=== PATIENT | female | born 1965 | race Caucasian/White ===

== ENCOUNTER 2018-11-30 13:15 | Observation (INO) | payer SELFPAY ==
[~2018-11-30] VITALS: Ht 149.9 cm; Wt 56.7 kg
--- NOTE | 2018-11-30 13:15 | NUR ---
GILDARDO ROSS admitted to room 410-1, with an admitting diagnosis of ACCELERATED HTN, on 11/30/18 from via DIRECT ADMIT FROM [facility], accompanied by EMS. GILDARDO ROSS introduced to surroundings, call light, bed controls, phone, TV, temperature control, lights, meal times, smoking policy, visitor policy, side rail policy, bathrooms and showers. Patient Rights given to patient in the handbook. GILDARDO ROSS verbalizes understanding that [facility] is not responsible for the loss or damage to any personal effects or valuables that are kept in the patients possession during their hospitalization. GILDARDO ROSS verbalizes understanding of Interdisciplinary Patient Education. Patient WAS informed about the Rapid Response Team and its purpose. Addendum: 11/30/18 at 1851 by GAVINO LANDA RN PT ARRIVED TO FLOOR AT 1515 ON 11/28/18.
[2018-11-30 15:15] VITALS: BP 170/88
[2018-11-30] MEDS ORDERED: HYDROCHLOROTHIAZIDE 25 MG (HCTZ) TAB PO ONE (15:15)
[2018-11-30] MEDS ORDERED: ACETAMINOPHEN 500 MG TAB (TYLENOL) PO PRN (15:15)
--- OUTSIDE RECORDS SUMMARY | 2018-11-30 15:17 | XMS REPORT ---
Author Author [facility] Address [address] [place] [address] Care Team Providers Care Water Resource Manager Name Role Phone ALEKSANDRA MARTI Unavailable PROBLEMS Type Condition ICD9-CM Code SWS21-CZ Code Onset Dates Condition Status SNOMED Code Problem COPD with exacerbation J44.1 Active 580285216 ALLERGIES Substance Reaction Event Type Date Status N.K.D.A. Unknown Non Drug Allergy Dec, Unknown SOCIAL HISTORY No smoking Hx information available PLAN OF CARE Activity Details Follow Up prn Reason: VITAL SIGNS Height 59 in 2016-12-18 Weight 127.3 lbs 2016-12-18 Temperature 97.9 degrees Fahrenheit 2016-12-18 Heart Rate 70 bpm 2016-12-18 Respiratory Rate 20 2016-12-18 Oximetry 97 % 2016-12-18 BMI 25.71 kg/m2 2016-12-18 Blood pressure systolic 168 mmHg 2016-12-18 Blood pressure diastolic 92 mmHg 2016-12-18 MEDICATIONS Medication Instructions Dosage Frequency Start Date End Date Duration Status Meloxicam 15 MG Orally Once a day 1 tablet 24h Active PredniSONE 20 mg Orally Once a day 2 tabelts 24h Dec, Dec, 05 days Active Levaquin 250 MG Orally Once a day 2 tablets 24h Dec, Dec, 05 days Active Alprazolam 0.25 MG Orally Three times a day PRN 1 tablet Active Lisinopril-Hydrochlorothiazide 10-12.5 MG Orally Once a day 1 tablet 24h Active RESULTS Name Result Date Reference Range Xray : Chest (IN HOUSE) 2016-12-18 PROCEDURES Procedure Date Ordered Related Diagnosis Body Site MEASURE BLOOD OXYGEN LEVEL Dec 18, 2016 CHEST X-RAY Dec 18, 2016 Office Visit, New Pt., Level 2 Dec 18, 2016 IMMUNIZATIONS No Known Immunizations
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
--- OUTSIDE RECORDS SUMMARY | 2018-11-30 15:17 | XMS REPORT ---
Author Author BOB LEWIS [facility] Address [address] [place] [address] Care Team Providers Care Medical Transcription Editor Name Role Phone BOB LEWIS Unavailable PROBLEMS Type Condition ICD9-CM Code [id number] Code Onset Dates Condition Status SNOMED Code Problem Osteoarthritis M19.90 Active 773898733 Problem Essential hypertension I10 Active 86612186 Problem Incomplete tear of right rotator cuff M75.111 Active 3338787 Problem COPD with exacerbation J44.1 Active 537636464 ALLERGIES No Known Allergies ENCOUNTERS Encounter Location Date Diagnosis [facility] [address] [place] [phone] Oct, De Quervain's tenosynovitis, bilateral M65.4 and Osteoarthritis M19.90 [facility] [address] [place] [address] Jul, Essential hypertension I10 and Incomplete tear of right rotator cuff M75.111 [email or web address] [address] [place] [address] Dec, Cough R05 and COPD with exacerbation J44.1 [address], [place] [address] Sep, [facility] [address] [place] [address] Aug, IMMUNIZATIONS No Known Immunizations SOCIAL HISTORY Never Assessed REASON FOR VISIT works as a quality control auditor. reports both hands are swollen et painful. [email or web address] PLAN OF CARE Activity Details Follow Up if not improving with PCP or reg follow up Reason: VITAL SIGNS Height 59 in 2018-10-26 Weight 123.4 lbs 2018-10-26 Temperature 98.6 degrees Fahrenheit 2018-10-26 Heart Rate 80 bpm 2018-10-26 Respiratory Rate 20 2018-10-26 BMI 24.92 kg/m2 2018-10-26 Blood pressure systolic 144 mmHg 2018-10-26 Blood pressure diastolic 86 mmHg 2018-10-26 MEDICATIONS Medication Instructions Dosage Frequency Start Date End Date Duration Status ibuprofen Oral 2-3 times per day 4 tab Active Meloxicam 15 MG Orally Once a day 1 tablet 24h Not-Taking Alprazolam 0.25 MG Orally Three times a day PRN 1 tablet Active Meloxicam 15 MG Orally Once a day 1 tablet 24h Oct, 30 day(s) Active Lisinopril-Hydrochlorothiazide 10-12.5 MG Orally Once a day 1 tablet 24h Active RESULTS No Results PROCEDURES No Known procedures INSTRUCTIONS MEDICATIONS ADMINISTERED No Known Medications MEDICAL (GENERAL) HISTORY Type Description Date Medical History HTN Medical History Arthritis Medical History Anxiety Surgical History Hospitalization History childbirth
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
[2018-11-30] MEDS ORDERED: ALPR0.254 PO (15:48)
[2018-11-30] MEDS ORDERED: NEBI5TAB8 PO (15:48)
[2018-11-30] MEDS ORDERED: PRD10T (15:48)
[2018-11-30] MEDS: hydrALAZINE (APESOLINE) 20 MG/ML VIAL IV SCH ×2 (15:55→20:10)
[2018-11-30] MEDS ORDERED: PATIENT MAY USE OWN MED,SINGLE MED PO SCH (16:00)
--- NOTE | 2018-11-30 16:00 | NUR ---
DR RAM NOTIFIED BY THIS RN OF PATIENTS HOME MEDICATION ON FILE. NEW ORDERS RECEIVED AT THIS TIME.
[2018-11-30] MEDS ORDERED: NICO-533 TD (17:51)
[2018-11-30] MEDS ORDERED: IBUP-16 PO (17:51)
[2018-11-30] MEDS ORDERED: MELO15TA14 PO (17:51)
[2018-11-30] MEDS: ALPRAZolam 0.25 MG (XANAX) TAB PO PRN (20:10)
[2018-11-30] MEDS: meTOprolol TARTRATE 50 MG (LOPRESSOR) TAB PO SCH (20:10)
[2018-11-30 20:40] VITALS: BP_SYST 154; BP_SYST 180; BP_DIAS 104; BP_DIAS 90
[2018-12-01] VITALS: BP 151/88
[2018-12-01 04:00] VITALS: BP 160/88
[2018-12-01 05:52] LABS: BASOPHILS % (AUTO) 0 % (0-10); EOSINOPHILS # (AUTO) 0.2 10^3/uL (0.0-0.3); EOSINOPHILS % (AUTO) 2 % (0-10); HEMATOCRIT 44 % (35-52); HEMOGLOBIN 14.7 G/DL (11.5-16.0); LYMPHOCYTES # (AUTO) 2.6 X 10^3 (1.0-4.0); LYMPHOCYTES % (AUTO) 28 % (12-44); MEAN CORPUSCULAR HEMOGLOBIN 32 PG (25-34); MEAN CORPUSCULAR HGB CONC 34 G/DL (32-36); MEAN CORPUSCULAR VOLUME 95 FL (80-99); MONOCYTES % (AUTO) 11 % (0-12); NEUTROPHILS # (AUTO) 5.5 X 10^3 (1.8-7.8); NEUTROPHILS % (AUTO) 59 % (42-75); PLATELET COUNT 268 10^3/uL (130-400); RED BLOOD COUNT 4.59 10^6/uL (4.35-5.85); RED CELL DISTRIBUTION WIDTH 13.7 % (10.0-14.5); WHITE BLOOD COUNT 9.2 10^3/uL (4.3-11.0)
[2018-12-01 06:11] LABS: ALANINE AMINOTRANSFERASE 79 U/L (0-55); ALKALINE PHOSPHATASE 95 U/L (40-136); BILIRUBIN,TOTAL 0.5 MG/DL (0.1-1.0); BUN/CREATININE RATIO 19; CALCIUM 9.7 MG/DL (8.5-10.1); CARBON DIOXIDE 26 MMOL/L (21-32); CHLORIDE 98 MMOL/L (98-107); CREATININE SERUM 0.75 MG/DL (0.60-1.30); GFR ESTIMATED > 60; GLUCOSE 89 MG/DL (70-105); POTASSIUM 4.4 MMOL/L (3.6-5.0); SODIUM 135 MMOL/L (135-145); TOTAL PROTEIN 7.1 GM/DL (6.4-8.2)
[2018-12-01] MEDS: hydrALAZINE (APESOLINE) 20 MG/ML VIAL IV SCH ×4 (06:22→09:55)
[2018-12-01] MEDS ORDERED: FLU QUADRIvalent (5+ YOA) 2018-2019 (AFLURIA) 0.5 ML IM ONE (07:15)
[2018-12-01] MEDS: meTOprolol TARTRATE 50 MG (LOPRESSOR) TAB PO SCH (08:27)
[2018-12-01] MEDS ORDERED: LISI1TAB10 PO (08:33)
[2018-12-01] MEDS ORDERED: METO50TA15 PO (08:33)
--- NOTE | 2018-12-01 08:39 | Discharge Inst-Simple/Standard ---
Discharge Inst-Standard Discharge Medications New, Converted or Re-Newed RX: Transmitted to Pharmacy Patient Instructions/Follow Up Plan of Care/Instructions/FU: Please continue to take your medications as written and please follow up with Dr Madison next week. Activity as Tolerated: Yes Discharge Diet: Cardiac Diet Return to The Hospital For: Chest pain, Short of breath, severe headache, if you feel worse. YANE CUBA MD Dec 01, 2018 08:39
--- NOTE | 2018-12-01 08:45 | Short Stay Summary-Hospitalist ---
History of Present Illness HPI/Chief Complaint Pt is a 53yoCF with a PMH of HTn who presented to outside hospital who elevated blood pressure. She states she has a long history of high blood pressure and was on Lisinopril and HCTZ and went to see Dr Madison in [place] and was started on Bystolic. She discontinued her Lisinopril/HCTZ at that time and was taking only the Bystolic. She took her BP and saw that it was 180/100 and called her PCP's office who advised her to take a higher dose of her bystolic. She then went to [facility] with her son and when they got done he checked her BP again and her systolic was on 200. She called her PCP's office and they advised her to seek care in the ER. On arrival to the ER she was found to have persistently high BP over 200 and was started on a cardene drip and transferred here. The Cardene was discontinued prior to arrival and her home medications where restarted. BP' s have remained in the 150-160s overnight and she states she is feeling well today. Source: patient Date Seen 12/01/18 Time Seen by a Provider: 09:30 Attending Physician Fernando Norton MD PCP Self,Terrence VIZCAINO Referring Physician Date of Admission Nov 30, 2018 at 15:13 Home Medications & Allergies Home Medications Reviewed patient Home Medication Reconciliation performed by pharmacy medication reconciliations communications field technician and/or nursing. Patients Allergies have been reviewed. Allergies Allergies Coded Allergies No Known Drug Allergies (Qexgqsfprw44/30/18) Past Buatrts-Njurae-Enpsrk Hx Past Med/Social Hx: Reviewed Nursing Past Med/Soc Hx Patient Social History Alcohol Use: Denies Use Recreational Drug Use: No Smoking Status: Former Smoker Former Smoker, Quit: Nov 17, 2018 Type Used: Cigarettes Physical Abuse Screen: No Sexual Abuse: No Recent Foreign Travel: No Contact w/other who traveled: No Recent Hopitalizations: No Recent Infectious Disease Expo: No Seasonal Allergies Seasonal Allergies: No Past Medical History Surgeries: Section Cardiac: Hypertension Musculoskeletal: Arthritis Psychosocial: Anxiety History of Blood Disorders: No Family History Reviewed Nursing Family Hx Colon cancer 19 MOTHER Completed stroke 19 FATHER, FH: heart disease 19 MOTHER Hypertension 19 FATHER, 19 MOTHER G8 BROTHER G8 SISTER Review of Systems Constitutional: No chills, No fever EENTM: nose congestion; No blurred vision, No double vision, No throat pain Respiratory: No cough, No dyspnea on exertion, No short of breath Cardiovascular: No chest pain, No edema, No palpitations Gastrointestinal: No abdominal pain, No constipation, No diarrhea, No nausea, No vomiting Genitourinary: No dysuria, No frequency Musculoskeletal: No joint pain, No muscle pain Skin: No lesions, No rash Psychiatric/Neurological: Headache Physical Exam Physical Exam Vital Signs Vital Signs - First Documented 11/30/18 15:15 Temp 98.6 Pulse 69 Resp 20 B/P (MAP) 170/88 (115) Pulse Ox 94 O2 Delivery Room Air Capillary Refill : Height, Weight, BMI Height: 4'11.00" Weight: 125lbs. 0.0oz. 56.311526og; 25.3 BMI Method: General Appearance: No Apparent Distress, WD/WN HEENT: PERRL/EOMI, Moist Mucous Membranes Neck: Non Tender, Supple Respiratory: Lungs Clear, No Respiratory Distress Cardiovascular: Regular Rate, Rhythm, No Murmur Gastrointestinal: Normal Bowel Sounds, Non Tender, Soft Extremity: Normal Capillary Refill, No Calf Tenderness Neurologic/Psychiatric: Alert, Oriented x3, Normal Mood/Affect Skin: Normal Color, Warm/Dry Results Results/Procedures Labs Patient resulted labs reviewed. Short Stay Diagnosis Discharge Diagnosis-Short Stay Admission Diagnosis Hypertensive Urgency Final Discharge Diagnosis Hypertensive Urgency Conclusion Plan Hypertensive Urgency BP improved with resumption of oral meds Will continue Lisinopril/HCTZ at home and transition to metoprolol tartate at home due to cost as patient has difficulty affording meds DC Home Clinical Quality Measures DVT/VTE Risk/Contraindication: Risk Factor Score Per Nursin RFS Level Per Nursing on Admit: 1=Low/No VTE PPX YANE CUBA MD Dec 01, 2018 08:45
[2018-12-01 08:48] VITALS: BP 177/97
[2018-12-01] MEDS ORDERED: lisINopril 20 MG (PRINIVIL) TABLET PO SCH (09:00)
[2018-12-01 09:20] VITALS: BP 211/107
[2018-12-01 09:30] VITALS: BP_SYST 172; BP_SYST 180; BP_DIAS 110; BP_DIAS 92
[2018-12-01] MEDS: ALPRAZolam 0.25 MG (XANAX) TAB PO PRN (10:08)
== END 2018-12-01 08:40 | disposition home or self-care (01) ==
LOC: 4TH 13:15 → UNDOADMOB 15:13 → 4TH 15:32 → UNDODISOB 12-01 11:44
PROVIDERS: ADMIT Internal Medicine; ATTEND Internal Medicine
DX: I16.0 Hypertensive urgency (principal); F41.9 Anxiety disorder, unspecified; M19.91 Primary osteoarthritis, unspecified site; Z87.891 Personal history of nicotine dependence; Z79.899 Other long term (current) drug therapy
CPT/HCPCS: 36415; 80053; 85025; 99211; G0378

== ENCOUNTER 2019-09-26 09:42 | Observation (INO) | payer SELFPAY ==
[~2019-09-26] VITALS: Ht 149.9 cm; Wt 78.5 kg
[~2019-09-26 09:42] MED LIST: ALPR0.254 PO; IBUP-16 PO; LISI1TAB10 PO; MELO15TA14 PO; METO50TA15 PO; NEBI5TAB8 PO; NICO-533 TD; PRD10T
--- NOTE | 2019-09-26 10:09 | ED General ---
General Chief Complaint: Trauma-Non Activation Stated Complaint: FALL - HIT BACK OF HEAD Source of Information: Patient, Family Exam Limitations: No Limitations History of Present Illness Date Seen by Provider: Sep 26, 2019 Time Seen by Provider: 10:00 Initial Comments Patient stayed up late last night drinking alcohol. Has been depressed and actually got sick from the alcohol and vomited about 330 this morning. While walking into her house after that, she slipped and fell backwards hitting her head on the floor without any loss of consciousness, but did cut the back of her head. Denies any significant headache, nausea or vomiting, dizziness or confusion. Allergies and Home Medications Allergies Coded Allergies: No Known Drug Allergies (Unverified , 11/30/18) Home Medications Lisinopril/Hydrochlorothiazide 1 Each Tablet, 1 EACH PO DAILY Prescribed by: YANE CUBA on 12/01/18 0833 Metoprolol Tartrate 50 Mg Tablet, 50 MG PO BID Prescribed by: YANE CUBA on 12/01/18 0833 Nicotine 1 Each Patch.dysq, 14 MG TD DAILY, (Reported) Patient Home Medication List Home Medication List Reviewed: Yes Review of Systems Review of Systems Constitutional: dizziness; No fever, No malaise, No weakness EENTM: see HPI; No hearing loss, No ear pain, No blurred vision, No double vision, No vision loss, No hoarseness Respiratory: No cough, No dyspnea on exertion, No short of breath Cardiovascular: No chest pain, No edema, No palpitations Gastrointestinal: No abdominal pain, No nausea, No vomiting Musculoskeletal: No back pain, No joint pain, No neck pain; other (laceration back of head) Skin: see HPI; No lumps; other (laceration scalp) Psychiatric/Neurological: Depressed, Emotional Problems Past Hrfhfbw-Rzgujb-Exzgpc Hx Past Med/Social Hx: Reviewed Nursing Past Med/Soc Hx Patient Social History Type Used: Cigarettes Former Smoker, Quit: Nov 17, 2018 Recent Hopitalizations: No Seasonal Allergies Seasonal Allergies: No Past Medical History Section Respiratory: No Cardiac: Yes Hypertension Neurological: No Genitourinary: No Gastrointestinal: No Musculoskeletal: Yes Arthritis Endocrine: No HEENT: No Cancer: No Psychosocial: Yes Anxiety Integumentary: No Blood Disorders: No Family Medical History Colon cancer 19 MOTHER Completed stroke 19 FATHER, FH: heart disease 19 MOTHER Hypertension 19 FATHER, 19 MOTHER G8 BROTHER G8 SISTER Physical Exam Vital Signs Vital Signs - First Documented 09/26/19 09:50 Temp 36.6 Pulse 71 Resp 18 B/P (MAP) 178/99 (125) Pulse Ox 96 O2 Delivery Room Air Capillary Refill : Height, Weight, BMI Height: 4'11.00" Weight: 125lbs. 0.0oz. 56.247732xf; 25.3 BMI Method: General Appearance: No Apparent Distress, WD/WN; No Anxious, No Mild Distress Eyes: Bilateral Eye Normal Inspection, Bilateral Eye PERRL, Bilateral Eye EOMI HEENT: PERRL/EOMI, TMs Normal, Normal ENT Inspection, Pharynx Normal, Other (2 cm horizontal laceration midline occiput with positive hemostasis. No bony crepitance or significant swelling) Neck: Full Range of Motion, Normal Inspection, Non Tender Respiratory: Chest Non Tender, Lungs Clear Cardiovascular: Regular Rate, Rhythm, No Edema, No Gallop, No JVD Gastrointestinal: Non Tender, Soft Back: Normal Inspection, No CVA Tenderness, No Vertebral Tenderness Extremity: Normal Capillary Refill, Normal Inspection, Normal Range of Motion Neurologic/Psychiatric: Alert, Oriented x3, No Motor/Sensory Deficits, Normal Mood/Affect, director college II-XII Norm as Tested Skin: Normal Color, Warm/Dry Procedures/Interventions Wound Location: Scalp Wound Length (cm): 2.0 Wound's Depth, Shape: linear Wound Explored: clean Anesthesia: 1% Lidocaine Volume Anesthetic (ccs): 3 Staple Repair: Stapler Skin Precise Number of Sutures: 3 Sterile Dressing Applied?: Yes Progress/Results/Core Measures Suspected Sepsis Recent Fever Within 48 Hours: No SIRS Temperature: Pulse: Respiratory Rate: Laboratory Tests 09/26/19 10:20: White Blood Count 10.9 Blood Pressure / Mean: Laboratory Tests 09/26/19 10:20: Creatinine 0.46L, Platelet Count 252, Total Bilirubin 0.4 Results/Orders Lab Results Laboratory Tests Test 09/26/19 10:20 Range/Units White Blood Count 10.9 4.3-11.0 10^3/uL Red Blood Count 4.41 4.35-5.85 10^6/uL Hemoglobin 13.6 11.5-16.0 G/DL Hematocrit 39 35-52 % Mean Corpuscular Volume 89 80-99 FL Mean Corpuscular Hemoglobin 31 25-34 PG Mean Corpuscular Hemoglobin Concent 35 32-36 G/DL Red Cell Distribution Width 13.2 10.0-14.5 % Platelet Count 252 130-400 10^3/uL Mean Platelet Volume 8.6 7.4-10.4 FL Neutrophils (%) (Auto) 81 H 42-75 % Lymphocytes (%) (Auto) 11 L 12-44 % Monocytes (%) (Auto) 7 0-12 % Eosinophils (%) (Auto) 1 0-10 % Basophils (%) (Auto) 0 0-10 % Neutrophils # (Auto) 8.8 H 1.8-7.8 X 10^3 Lymphocytes # (Auto) 1.2 1.0-4.0 X 10^3 Monocytes # (Auto) 0.7 0.0-1.0 X 10^3 Eosinophils # (Auto) 0.1 0.0-0.3 10^3/uL Basophils # (Auto) 0.0 0.0-0.1 10^3/uL Sodium Level 120 *L 135-145 MMOL/L Potassium Level 4.2 3.6-5.0 MMOL/L Chloride Level 79 L 98-107 MMOL/L Carbon Dioxide Level 27 21-32 MMOL/L Anion Gap 14 5-14 MMOL/L Blood Urea Nitrogen 6 L 7-18 MG/DL Creatinine 0.46 L 0.60-1.30 MG/DL Estimat Glomerular Filtration Rate > 60 BUN/Creatinine Ratio 13 Glucose Level 118 H 70-105 MG/DL Calcium Level 10.1 8.5-10.1 MG/DL Corrected Calcium 10.0 8.5-10.1 MG/DL Total Bilirubin 0.4 0.1-1.0 MG/DL Aspartate Amino Transf (AST/SGOT) 25 5-34 U/L Alanine Aminotransferase (ALT/SGPT) 22 0-55 U/L Alkaline Phosphatase 97 40-136 U/L Total Protein 7.3 6.4-8.2 GM/DL Albumin 4.1 3.2-4.5 GM/DL Serum Alcohol 151 H <10 MG/DL My Orders Orders - ROVENSTINE,PATRICIA L DO Lidocaine Pf 1% 5 Ml Injection (Xylocain (09/26/19 10:15) Ct Head Wo (09/26/19 10:01) Ns Iv 1000 Ml (Sodium Chloride 0.9%) (09/26/19 10:30) Ondansetron Injection (Zofran Injectio (09/26/19 10:30) Alcohol (09/26/19 10:22) Cbc With Automated Diff (09/26/19 10:22) Comprehensive Metabolic Panel (09/26/19 10:22) Ed Iv/Invasive Line Start (09/26/19 10:22) Chest Pa/Lat (2 View) (09/26/19 10:58) Ns Iv 1000 Ml (Sodium Chloride 0.9%) (09/26/19 12:00) Medications Given in ED Current Medications Medications Dose Ordered Sig/Melany Route Start Time Stop Time Status Last Admin Dose Admin Lidocaine HCl 5 ml ONCE ONCE INJ 09/26/19 10:15 09/26/19 10:16 DC 09/26/19 10:30 5 ML Ondansetron HCl 4 mg ONCE ONCE IVP 09/26/19 10:30 09/26/19 10:31 DC 09/26/19 10:32 4 MG Vital Signs/I&O 09/26/19 09:50 Temp 36.6 Pulse 71 Resp 18 B/P (MAP) 178/99 (125) Pulse Ox 96 O2 Delivery Room Air Capillary Refill : Progress Note : Time: 11:00 Progress Note Patient with 2 episodes of vomiting where she seems to have a vasovagal, witnessed near syncopal episode. On the second one of these she thinks she may have aspirated some of her vomit and began to have a cough and some chest congestion afterwards. Noted by a nurse that her oxygen saturation was now 88 percent on room air. Patient with no known history of respiratory problems, hypoxia or sleep apnea. Oxygen applied and two-view chest ordered at this time. ECG Initial ECG Impression Date: Sep 26, 2019 Initial ECG Impression Time: 09:33 Initial ECG Rate: 105 Initial ECG Rhythm: S.Tach Initial ECG Intervals: Normal Initial ECG Comparisson: No Previous ECG Available Departure Communication (Admissions) Time/Spoke to Admitting Phy: 11:[address] Bowen @ [phone], accepts for admission to [facility]. Will cont NS @ 250/h and recheck BMP in am tomorrow. Impression Primary Impression: Hyponatremia Additional Impressions: Occipital scalp laceration Qualified Codes: S01.01XA - Laceration without foreign body of scalp, initial encounter Closed head injury Qualified Codes: S09.90XA - Unspecified injury of head, initial encounter Alcohol intoxication Qualified Codes: F10.920 - Alcohol use, unspecified with intoxication, uncomplicated Hypoxia Disposition: 09 ADMITTED INPATIENT Condition: Improved Admissions Decision to Admit Reason: Admit from ER (General) Decision to Admit/Date: Sep 26, 2019 Time/Decision to Admit Time: 11:30 Departure-Patient Inst. Referrals: SELF,JULIO VIZCAINO (PCP/Family) Primary Care Physician Patient Instructions: Alcohol Use - When Is Drinking a Problem?, Closed Head Injury (DC), Laceration Repair With Evangelista (DC) PATRICIA METZGER DO Sep 26, 2019 10:09
[2019-09-26] MEDS ORDERED: LIDOCAINE PF 1% 5 ML (XYLOCAINE) AMP INJ ONE (10:15)
--- NOTE | 2019-09-26 10:29 | Diagnostic Imaging Report ---
PROCEDURE: CT head without contrast. TECHNIQUE: Multiple contiguous axial images were obtained through the brain without the use of intravenous contrast. Auto Exposure Controls were utilized during the CT exam to meet ALARA standards for radiation dose reduction. INDICATION: Fell and hit back of head. Dizziness. Nausea The ventricles are normal in size, shape and position. There is no acute parenchymal hemorrhage, edema or mass. There is no extra-axial mass or hemorrhage. There is scalp edema posteriorly on the left. No skull fracture is seen. IMPRESSION: Scalp edema. No intracranial abnormality is seen. Dictated by: Dictated on workstation # [id number]
[2019-09-26] MEDS ORDERED: NS IV 1000 ML 1,000 ML IV SCH (10:30)
[2019-09-26] MEDS ORDERED: ONDANSETRON 4 MG/2 ML (SDV) Z0FRAN IVP ONE (10:30)
--- NOTE | 2019-09-26 10:30 | NUR ---
Patient has had x2 episodes of emesis with vasovagal response. After second episode her oxygen saturation dropped to 88%. Supplemental oxygen at 2L was applied and increased to 4L to achieve an oxygen saturation of 94%. Chest X-ray was also ordered at this time.
[2019-09-26 10:32] LABS: WHITE BLOOD COUNT 10.9 10^3/uL (4.3-11.0)
[2019-09-26 10:33] LABS: BASOPHILS % (AUTO) 0 % (0-10); EOSINOPHILS # (AUTO) 0.1 10^3/uL (0.0-0.3); EOSINOPHILS % (AUTO) 1 % (0-10); HEMATOCRIT 39 % (35-52); HEMOGLOBIN 13.6 G/DL (11.5-16.0); LYMPHOCYTES # (AUTO) 1.2 X 10^3 (1.0-4.0); LYMPHOCYTES % (AUTO) 11 % (12-44); MEAN CORPUSCULAR HEMOGLOBIN 31 PG (25-34); MEAN CORPUSCULAR HGB CONC 35 G/DL (32-36); MEAN CORPUSCULAR VOLUME 89 FL (80-99); MEAN PLATELET VOLUME 8.6 FL (7.4-10.4); MONOCYTES # (AUTO) 0.7 X 10^3 (0.0-1.0); MONOCYTES % (AUTO) 7 % (0-12); NEUTROPHILS # (AUTO) 8.8 X 10^3 (1.8-7.8); NEUTROPHILS % (AUTO) 81 % (42-75); PLATELET COUNT 252 10^3/uL (130-400); RED CELL DISTRIBUTION WIDTH 13.2 % (10.0-14.5)
[2019-09-26 11:11] LABS: BUN/CREATININE RATIO 13; CALCIUM 10.1 MG/DL (8.5-10.1); CARBON DIOXIDE 27 MMOL/L (21-32); CHLORIDE 79 MMOL/L (98-107); CREATININE SERUM 0.46 MG/DL (0.60-1.30); GFR ESTIMATED > 60; GLUCOSE 118 MG/DL (70-105); POTASSIUM 4.2 MMOL/L (3.6-5.0)
[2019-09-26 11:12] LABS: ALANINE AMINOTRANSFERASE 22 U/L (0-55); ALBUMIN 4.1 GM/DL (3.2-4.5); ALKALINE PHOSPHATASE 97 U/L (40-136); BILIRUBIN,TOTAL 0.4 MG/DL (0.1-1.0); TOTAL PROTEIN 7.3 GM/DL (6.4-8.2)
[2019-09-26 11:13] LABS: SODIUM 120 MMOL/L (135-145)
--- NOTE | 2019-09-26 11:20 | Diagnostic Imaging Report ---
INDICATION: Cough. Smoking history. FINDINGS: PA and lateral chest shows the heart size and vascularity to be normal. There is obstructive airway disease with no mass or infiltrate seen. There is no pleural effusion. IMPRESSION: COPD. No acute abnormality is seen. Dictated by: Dictated on workstation # [id number]
[2019-09-26] MEDS: NS IV 1000 ML 1,000 ML IV SCH ×4 (11:59→22:08)
[2019-09-26 13:38] VITALS: BP 153/96
--- NOTE | 2019-09-26 15:42 | NUR ---
GILDARDO ROSS admitted to room 426-1, with an admitting diagnosis of HYPONATREMIA,CLOSED HEAD INJURY, on 09/26/19 from [facility] via [facility], accompanied by PERSONNEL.GILDARDO ROSS introduced to surroundings, call light, bed controls, phone, TV, temperature control, lights, meal times, smoking policy, visitor policy, side rail policy, bathrooms and showers.GILDARDO ROSS verbalizes understanding that [facility] is not responsible for the loss or damage to any personal effects or valuables that are kept in the patients posession during their hospitalization. The following Patient Care Plans were discussed with the PATIENT: Discharge Planning, PAIN,FALL PRECAUTION, and ELECTROLYTE REPLACEMENT. GILDARDO ROSS verbalizes understanding of Interdisciplinary Patient Education.
[2019-09-26] MEDS ORDERED: MELO15TA14 PO (15:43)
[2019-09-26] MEDS ORDERED: hctz (15:46)
[2019-09-26] MEDS ORDERED: losartan (15:46)
[2019-09-26] MEDS ORDERED: HUMARA (15:46)
[2019-09-26] MEDS ORDERED: coreg (15:46)
[2019-09-26] MEDS ORDERED: ONDANSETRON 4 MG/2 ML (SDV) Z0FRAN IVP PRN (16:00)
[2019-09-26] MEDS ORDERED: CATHETER FLUSH 10 ML SYR IV PRN (16:45)
[2019-09-26 16:58] VITALS: BP 198/108
[2019-09-26] MEDS ORDERED: coreg PO (17:24)
[2019-09-26] MEDS ORDERED: HUMARA IM (17:24)
[2019-09-26] MEDS ORDERED: hctz PO (17:24)
[2019-09-26] MEDS ORDERED: losartan PO (17:24)
[2019-09-26] MEDS ORDERED: CARVEDILOL 12.5 MG (COREG) TABLET ONE (17:34)
[2019-09-26] MEDS: ALPRAZolam 0.25 MG (XANAX) TAB PO SCH (17:45)
[2019-09-26] MEDS: CARVEDILOL 12.5 MG (COREG) TABLET PO SCH (17:46)
--- NOTE | 2019-09-26 17:47 | NUR ---
per dr rosario give xanex and coreg early for blood pressure of 202/104.
--- NOTE | 2019-09-26 19:43 | NUR ---
PT RATES PAIN AT A 7, SHE REPORTS SHE TAKES LORTAB 5/325 PRN AT HOME. DAUGHTER IN ROOM AND HAD MEDICATION BOTTLE AND THE INSTRUCTIONS READ PRN BID. DR YU NOTIFIED AND HE SAID IT WAS OK TO RESTART THIS MED.
[2019-09-26] MEDS ORDERED: HYDROcodone/APAP 5 MG/325 MG (LORTAB) TAB PO PRN (19:45)
[2019-09-26] MEDS ORDERED: HYDROcodone/APAP 5 MG/325 MG (LORTAB) TAB ONE (19:46)
[2019-09-26 20:05] VITALS: BP 161/93
[2019-09-27] VITALS: BP 163/95
[2019-09-27] MEDS: HYDROcodone/APAP 5 MG/325 MG (LORTAB) TAB PO PRN ×2 (02:18→06:05)
[2019-09-27] MEDS: NS IV 1000 ML 1,000 ML IV SCH ×3 (02:20→07:59)
[2019-09-27 04:00] VITALS: BP 150/98
[2019-09-27 05:41] LABS: ALANINE AMINOTRANSFERASE 17 U/L (0-55); ALBUMIN 3.5 GM/DL (3.2-4.5); ALKALINE PHOSPHATASE 82 U/L (40-136); BILIRUBIN,TOTAL 0.8 MG/DL (0.1-1.0); BUN/CREATININE RATIO 7; CALCIUM 8.3 MG/DL (8.5-10.1); CARBON DIOXIDE 24 MMOL/L (21-32); CHLORIDE 95 MMOL/L (98-107); CREATININE SERUM 0.59 MG/DL (0.60-1.30); GFR ESTIMATED > 60; GLUCOSE 88 MG/DL (70-105); POTASSIUM 3.4 MMOL/L (3.6-5.0); SODIUM 130 MMOL/L (135-145)
[2019-09-27] MEDS: CARVEDILOL 12.5 MG (COREG) TABLET PO SCH (07:58)
[2019-09-27] MEDS: ALPRAZolam 0.25 MG (XANAX) TAB PO SCH (07:59)
[2019-09-27 08:00] VITALS: BP 146/88
--- NOTE | 2019-09-27 08:02 | NUR ---
prior to a.m, medications pulse was 97 b/p was 145/76 Addendum: 09/27/19 at 0830 by DENA NOBLE RN error in documentation of b/p and pulse the actual pulse was 82 and b/p was 146/88
[2019-09-27 11:00] VITALS: BP 146/88
--- NOTE | 2019-09-27 11:53 | Short Stay Summary-Hospitalist ---
History of Present Illness HPI/Chief Complaint Patient stayed up late last night drinking alcohol. Has been depressed and actually got sick from the alcohol and vomited about 330 this morning. While walking into her house after that, she slipped and fell backwards hitting her head on the floor without any loss of consciousness, but did cut the back of her head. Denies any significant headache, nausea or vomiting, dizziness or confusion. She was noted to have a sodium level 120 her predominant reason for admission. She has a history of hypertension for which thiazide diuretic therapy in the form of hydrochlorothiazide 25 mg daily was part of her regiment. Normal saline was initiated and she was transferred to [facility] for admission and monitoring. Date Seen 09/27/19 Time Seen by a Provider: 07:00 Attending Physician Salbador Bowen MD PCP Self,Terrence VIZCAINO Referring Physician Date of Admission Sep 26, 2019 at 12:15 Home Medications & Allergies Home Medications Reviewed patient Home Medication Reconciliation performed by pharmacy medication reconciliations engineering laboratory technician and/or nursing. Patients Allergies have been reviewed. Allergies Allergies Coded Allergies No Known Drug Allergies ([id number]/30/18) Past Gsmfghu-Nyeryv-Frhawc Hx Past Med/Social Hx: Reviewed Nursing Past Med/Soc Hx, Reviewed and Corrections made Patient Social History Alcohol Use: Regular Use Number of Drinks Today: 0 Alcohol Beverage of Choice: Beer Recreational Drug Use: No Smoking Status: Former Smoker Former Smoker, Quit: Nov 17, 2018 Type Used: Cigarettes 2nd Hand Smoke Exposure: No Physical Abuse Screen: No Sexual Abuse: No Recent Foreign Travel: No Contact w/other who traveled: No Recent Hopitalizations: No Recent Infectious Disease Expo: No Immunizations Up To Date Pediatric: No Date of Pneumonia Vaccine: Sep 26, 2016 Date of Influenza Vaccine: Sep 12, 2019 Seasonal Allergies Seasonal Allergies: Yes (hayfever) Past Medical History Surgeries: Section Currently Using CPAP: No Currently Using BIPAP: No Cardiac: Hypertension Gastrointestinal: Irritable Bowel Musculoskeletal: Rheumatoid Arthritis Psychosocial: Anxiety, Depression History of Blood Disorders: No Family History Colon cancer 19 MOTHER Completed stroke 19 FATHER, FH: heart disease 19 MOTHER Hypertension 19 FATHER, 19 MOTHER G8 BROTHER G8 SISTER Review of Systems Constitutional: dizziness, weakness Respiratory: No cough, No dyspnea on exertion, No hemoptysis, No orthopnea, No phlegm, No short of breath, No stridor, No wheezing, No other Cardiovascular: No no symptoms reported, No see HPI, No chest pain, No edema, No Hx of Intervention, No palpitations, No syncope, No vascular heart diseas, No other Gastrointestinal: vomiting (No hematemesis noted no melena reported.) Physical Exam Physical Exam Vital Signs Vital Signs - First Documented 09/26/19 09:50 Temp 36.6 Pulse 71 Resp 18 B/P (MAP) 178/99 (125) Pulse Ox 96 O2 Delivery Room Air Capillary Refill : Less Than 3 SecondsLess Than 3 Seconds Height, Weight, BMI Height: 4'11.00" Weight: 125lbs. 0.0oz. 56.573702wy; 34.93 BMI Method: General Appearance: No Apparent Distress, WD/WN; No Anxious, No Mild Distress Eyes: Bilateral Eye Normal Inspection, Bilateral Eye PERRL, Bilateral Eye EOMI HEENT: PERRL/EOMI, TMs Normal, Normal ENT Inspection, Pharynx Normal, Other (2 cm horizontal laceration midline occiput with positive hemostasis. No bony crepitance or significant swelling) Neck: Full Range of Motion, Normal Inspection, Non Tender Respiratory: Chest Non Tender, Lungs Clear Cardiovascular: Regular Rate, Rhythm, No Edema, No Gallop, No JVD, Systolic Murmur (2/6 heard best over the aortic outflow tract no evidence for pulsus parvus or tardus.) Gastrointestinal: Non Tender, Soft Back: Normal Inspection, No CVA Tenderness, No Vertebral Tenderness Extremity: Normal Capillary Refill, Normal Inspection, Normal Range of Motion Neurologic/Psychiatric: Alert, Oriented x3, No Motor/Sensory Deficits, Normal Mood/Affect, client account manager II-XII Norm as Tested Skin: Normal Color, Warm/Dry Results Results/Procedures Labs Laboratory Tests 09/26/19 10:20 09/27/19 05:15 Patient resulted labs reviewed. Short Stay Diagnosis Discharge Diagnosis-Short Stay Admission Diagnosis A/P 1. Alcohol use disorder 2. Hyponatremia secondary to combination of excessive beer consumption with thiazide diuretic therapy. 3. Scalp laceration secondary to fall. Final Discharge Diagnosis As per above Conclusion Plan Patient was admitted with initiation of normal saline. The following morning h er sodium level had come up from 120 230. In discussion with the patient with her daughter present about the serious nature of alcohol use disorder and hyponatremia likely due to excessive beer consumption and thiazide diuretic therapy. Patient reported she was not suicidal began drinking a year ago after the loss of her but states that she is through with alcohol that she is going to quit. She successfully has remained off cigarettes and states she can do the same with alcohol. We also discussed the fact that alcohol was likely aggravating blood pressure control and that she may require less medication off alcohol. In the meantime she was told to discontinue hydrochlorothiazide. Reduce her risk for recurrent hyponatremia. She was advised to follow-up with Dr. whittaker next week for a repeat basic metabolic panel. Her chest x-ray revealed no evidence for tumor or adenopathy there were some reported COPD changes. CT head revealed no abnormalities. She will require staple remover there are 3 the end of the week. Her incision looked good with no evidence for hematoma or o ngoing bleeding. Clinical Quality Measures DVT/VTE Risk/Contraindication: Risk Factor Score Per Nursin RFS Level Per Nursing on Admit: 1=Low/No VTE PPX Copy Copies To 1: TERRENCE WHITTAKER MD, MARK D MD Sep 27, 2019 11:53
== END 2019-09-27 11:00 | disposition home or self-care (01) ==
LOC: EDUNIT# 09:42 → ER FS 09:43 → 4TH 12:15
PROVIDERS: ADMIT Internal Medicine; ATTEND Internal Medicine
DX: S01.01XA Laceration without foreign body of scalp, initial encounter (principal); S09.90XA Unspecified injury of head, initial encounter; F10.920 Alcohol use, unspecified with intoxication, uncomplicated; M06.9 Rheumatoid arthritis, unspecified; M19.90 Unspecified osteoarthritis, unspecified site; I10 Essential (primary) hypertension; E87.1 Hypo-osmolality and hyponatremia; F41.9 Anxiety disorder, unspecified; W01.0XXA Fall on same level from slipping, tripping and stumbling without subsequent striking against object, initial encounter; Z79.899 Other long term (current) drug therapy; Z87.891 Personal history of nicotine dependence; Z80.0 Family history of malignant neoplasm of digestive organs; Z82.3 Family history of stroke; Z82.49 Family history of ischemic heart disease and other diseases of the circulatory system
CPT/HCPCS: 36415; 70450; 71046; 80053; 80320; 85025; 96361; 96374; G0378